=== PATIENT | male | born 2000 | race Caucasian/White ===

== ENCOUNTER 2021-03-22 01:26 | Emergency (ER) | payer SELFPAY ==
[2021-03-22] MEDS ORDERED: Lidocaine 1% 20 ML MDV ONE (01:43)
[2021-03-22] MEDS ORDERED: Bacitracin 1 PK ONE (02:26)
[2021-03-22] MEDS ORDERED: Sterile Water Irrigation 250 ML BOT ONE (02:49)
== END 2021-03-22 02:42 | disposition home or self-care (01) ==
LOC: MADERS 01:26
DX: S31.812A Laceration with foreign body of right buttock, initial encounter (principal); S91.205A Unspecified open wound of left lesser toe(s) with damage to nail, initial encounter; S91.011A Laceration without foreign body, right ankle, initial encounter; S80.812A Abrasion, left lower leg, initial encounter; S80.811A Abrasion, right lower leg, initial encounter; W17.89XA Other fall from one level to another, initial encounter
CPT/HCPCS: 12004

== ENCOUNTER 2021-11-13 05:32 | Emergency (ER) | payer SELFPAY | END 2021-11-13 06:02 | disposition home or self-care (01) | LOC: MADERS 05:32 | DX: K52.9 Noninfective gastroenteritis and colitis, unspecified (principal) | CPT/HCPCS: 99283 ==